=== PATIENT | male | born 2000 | race Caucasian/White ===

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

== ENCOUNTER 2021-03-21 21:08 | Emergency (ER) | payer MEDICAID, OTHER ==
[~2021-03-21] VITALS: Ht 170.2 cm; Wt 70.9 kg
[2021-03-21 21:08] VITALS: BP 130/68
[~2021-03-21 21:08] MED LIST changes: -NAPR-50 PO; +NAPR-837 PO
[2021-03-22] MEDS ORDERED: NEOSPORIN OINT 0.9 GM PKT TOP ONE (01:30)
[2021-03-22] MEDS ORDERED: LIDOCAINE 1% MDV 20ML VIAL SC ONE (01:30)
[2021-03-22] MEDS ORDERED: CEPHALEXIN 500 MG CAP PO ONE (01:30)
[2021-03-22] MEDS ORDERED: CEPH500C PO (02:11)
[2021-03-22] MEDS ORDERED: BACI500O21 TOP (02:11)
== END 2021-03-22 02:31 | disposition home or self-care (01) ==
LOC: M ED 21:08
DX: S61.411A Laceration without foreign body of right hand, initial encounter (principal); W26.0XXA Contact with knife, initial encounter; Y92.89 Other specified places as the place of occurrence of the external cause; Y93.9 Activity, unspecified; Y99.0 Civilian activity done for income or pay

== ENCOUNTER → 2024-07-20 | Outpatient (REF) | payer MEDICAID, OTHER ==
[~2024-07-20] MED LIST changes: +BACI500O21 TOP; +CEPH500C PO
[2024-07-20 18:32] LABS: BASO % 0.2 % (0.0-1.0); EOS # 0.1 10^3/uL (0.0-0.5); HEMATOCRIT 47.9 % (42.0-52.0); HEMOGLOBIN 16.1 g/dl (13.5-17.5); LYMPH # 1.5 10^3/uL (1.5-5.0); LYMPH % 31.4 % (24.0-44.0); MEAN CORPUSCULAR HEMOGLOBIN 28.6 pg (27.0-33.0); MEAN CORPUSCULAR HGB CONC 33.6 g/dl (32.0-36.5); MEAN CORPUSCULAR VOLUME 85.1 fl (80.0-96.0); MONO # 0.4 10^3/uL (0.0-0.8); MONO % 7.6 % (2.0-8.0); NEUTROPHILS # 2.9 10^3/uL (1.5-8.5); NEUTROPHILS % 59.6 % (36.0-66.0); PLATELET COUNT, AUTOMATED 214 10^3/uL (150-450); RED BLOOD COUNT 5.63 10^6/uL (4.30-6.10); WHITE BLOOD COUNT 4.9 10^3/uL (4.0-10.0)
[2024-07-20 18:34] LABS: LIPASE 26 U/L (12-53)
[2024-07-20 18:35] LABS: AMYLASE 105 U/L (30-118)
[2024-07-20 18:36] LABS: ALBUMIN 4.3 G/DL (3.2-5.2); ALKALINE PHOSPHATASE 65 U/L (40-129); ALT/SGPT 36 U/L (7.0-40); AST/SGOT 26 U/L (<34); BILIRUBIN,TOTAL 0.3 MG/DL (0.3-1.2); BLOOD UREA NITROGEN 11 MG/DL (9-23); CALCIUM LEVEL 9.6 MG/DL (8.5-10.1); CARBON DIOXIDE LEVEL 30 MMOL/L (20-31); CHLORIDE LEVEL 105 MMOL/L (98-107); CREATININE FOR GFR 0.86 MG/DL (0.70-1.30); GLOMERULAR FILTRATION RATE > 60.0 (>60); GLUCOSE, FASTING 93 MG/DL (60-100); POTASSIUM SERUM 4.1 MMOL/L (3.5-5.1); SODIUM LEVEL 140 MMOL/L (136-145); TOTAL PROTEIN 8.1 G/DL (5.7-8.2)
[2024-07-20 18:38] LABS: THYROID STIMULATING HORMONE 1.068 uIU/ML (0.55-4.78)
== END ==
LOC: M LAB REF 18:13
PROVIDERS: ATTEND Student in an Organized Health Care Education/Training Program
DX: R10.9 Unspecified abdominal pain (principal); R19.7 Diarrhea, unspecified